=== PATIENT | female | born 1965 | race Caucasian/White ===

== ENCOUNTER → 2024-09-06 | Outpatient (REF) | payer OTHER | LOC: MAMMO 13:45 | PROVIDERS: ATTEND Internal Medicine | DX: Z12.31 Encounter for screening mammogram for malignant neoplasm of breast (principal); Z13.820 Encounter for screening for osteoporosis; I05.9 Rheumatic mitral valve disease, unspecified | CPT/HCPCS: 77067; 77080 ==